=== PATIENT | female | born 1970 | race Caucasian/White ===

== ENCOUNTER 2017-04-09 15:54 | Emergency (ER) | payer OTHER ==
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
== END 2017-04-09 17:58 | disposition left against medical advice (07) ==
LOC: UCEAST 15:54
DX: S80.02XA Contusion of left knee, initial encounter (principal); S80.01XA Contusion of right knee, initial encounter; V49.40XA Driver injured in collision with unspecified motor vehicles in traffic accident, initial encounter; Y93.89 Activity, other specified; Y92.410 Unspecified street and highway as the place of occurrence of the external cause; R07.89 Other chest pain; R06.02 Shortness of breath; J44.9 Chronic obstructive pulmonary disease, unspecified; F41.9 Anxiety disorder, unspecified; G43.909 Migraine, unspecified, not intractable, without status migrainosus; Z88.1 Allergy status to other antibiotic agents; F32.9 Major depressive disorder, single episode, unspecified; E66.9 Obesity, unspecified; Z88.0 Allergy status to penicillin; Z88.2 Allergy status to sulfonamides
CPT/HCPCS: 93005; 99201; G0463

== ENCOUNTER 2018-09-18 11:55 | Emergency (ER) | payer OTHER ==
--- OUTSIDE RECORDS SUMMARY | 2018-09-18 12:04 | XMS REPORT | Continuity of Care Document ---
:1970 External Reference #:[id number] Author Name Talha Dorsey MD Address [address] [place] [address] Care Team Providers Name Role Phone Orlando Gudino MD Care Team Information First Crusher Unavailable Orlando Gudino MD Primary Care Physician Unavailable Payers Type Date Identification Numbers Payment Provider Subscriber Policy Number: [id number] [facility] Yoselyn Grigsby PayID: [id number] [address] [address] [place] [address] Advance Directives Description No Information Available Problems Date Description Provider Status Onset: 09/02/2015 Allergic rhinitis due to pollen Tasneem Lopez, Active RPA-C Onset: 09/02/2015 Allergic rhinitis Tasneem Lopez, Active RPA-C Onset: 06/07/2018 Allergy to other foods CYNTHIA Walton Active Family History Date Family Member(s) Problem(s) Comments General Heart Disease General Hypertension General Stroke General Cancer Social History Type Date Description Comments Sex Unknown Home Environment Has a window air conditioner Home Environment Unfinished Basement Home Environment The floors are wood Home Environment The floors are tile Home Environment The floors are carpeted Home Environment Radiator Heat Home Environment Uses electric heating Smoke-Free Home is smoke-free Pets 1 cat Tobacco Use Start: Unknown Patient has never smoked Smoking Status Reviewed: 09/11/18 Patient has never smoked Allergies, Adverse Reactions, Alerts Date Description Reaction Status Severity Comments 08/12/2015 Penicillins Active 08/12/2015 Erythromycin Active 08/12/2015 Sulfa (Sulfonamide Antibiotics) Active Medications Medication Date Status Form Strength Qnty SIG Indications Ordering Provider Zyrtec-D Allergy 09/11 Active Tablets ER 5-120mg 30tab One tab J30.1 oph & Congestion 12HR s every 12 Suad Dorsey MD hours as needed Flunisolide 07/05 Active Solution 25mcg/Act 25ml 2 sprays (0.025%) each Suad Dorsey MD nostril twice a day Qnasl 06/07 Active Aerosol 80mcg/Act 1unit 2 puffs Z91.018 s each Suad Dorsey MD nostril every day Zyrtec Allergy 02/14 Active Tablets 10mg 30tab one J30.1 s tablet by Suad Dorsey MD mouth every day as needed Cymbalta Active Caps DR 60mg Once a Unknown /0000 Part day Valium Active Tablets 5mg prn Unknown Neurontin Active Capsules 300mg 3 times a Unknown / day Meloxicam Active Tablets 7.5mg take 1 Unknown /0000 tablet by mouth twice a day Zaleplon Active Capsules 10mg take 1 Unknown /0000 capsule by mouth at bedtime Topiramate Active Tablets 50mg take 1 Unknown /0000 tablet by mouth twice a day Cyclobenzaprine Active Tablets 10mg Shahab HCL / Orlando RODARTE Duloxetine HCL Active Caps DR 30mg Unknown / Part Triamcinolone Active Aerosol 55mcg/Act Unknown Acetonide / Fluticasone Active Suspension 50mcg/Act Unknown Propionate /0000 Prednisone Active Tablets 10mg take 3 Unknown /0000 tablets by mouth every morning and 3 every evening for 3 days Oxycodone-Acetam Active Tablets 5-325mg take 1 Unknown inophen /0000 tablet every 6 hours if needed for pain Ibuprofen Active Tablets 800mg take 1 Unknown /0000 tablet three times a day for pain Clindamycin HCL Active Capsules 300mg Unknown /0000 Triamcinolone 05/28 Hx Aerosol 55mcg/Act 1unit 2 puffs Z91.018 s each Suad Dorsey MD - nostril 07/05 every day Qnasl 05/24 Hx Aerosol 80mcg/Act 1unit 2 puffs Z91.018 s each Suad Dorsey MD - nostril 05/28 every Flonase Allergy 02/14 Hx Suspension 50mcg/Act 9.900 2 puffs J30.1 ml each Suad Dorsey MD - nostril 05/24 twice a day Prednisone 02/14 Hx Tablets 10mg 18tab take 3 J30.89 s pills in Suad Dorsey MD - the 03/14 morning /2017 and 3 pills at night for three days. Zyrtec-D Allergy 09/18 Hx Tablets ER 5-120mg 30tab 1 by Louie, & Congestion 12HR s mouth CLARA Gudino-Gerardo - every day 02/14 as needed /2017 Cytomel Hx Unknown /0000 - 02/14 Neurontin Hx Unknown /0000 - 05/24 Flonase Allergy Hx Suspension 50mcg/Act Inhale 2 opher sprays Suad Dorsey MD - into 02/14 nostril /2017 daily in each nostril for nose inflammat ion Zyrtec Allergy Hx Tablets 10mg 30tab one s tablet by Suad Dorsey MD - mouth 02/14 every as needed Oxycodone-Acetam Hx Tablets 5-325mg take 1 Unknown inophen /0000 tablet - every 6 / hours needed for pain Cetirizine Hx Tablets ER 5-120mg Unknown HCL/Pseudoephedr /0000 12HR ine HCL ER - 09/11 Acetaminophen-Co Hx Tablets 300-30mg Unknown deine #3 /0000 - 09/11 Medications Administered in Office Medication Date Status Form Strength Qnty SIG Indications Ordering Provider Allergy 03/09/ Administered Injection Christopher Injection 2 2017 Suad Dorsey MD Or More Allergy 11/18/ Administered Injection Christopher Injection 2 2015 Suad Dorsey MD Or More Allergy 11/04/ Administered Injection Christopher Injection 2 2014 Suad Dorsey MD Or More Allergy 10/23/ Administered Injection Christopher Injection 2 2014 Suad Dorsey MD Or More Allergy 10/14/ Administered Injection Christopher Injection 2 2014 Suad Dorsey MD Or More Allergy 10/07/ Administered Injection Christopher Injection 2 2014 Suad Dorsey MD Or More Allergy 09/25/ Administered Injection Christopher Injection 2 2014 Suad Dorsey MD Or More Immunizations Description No Information Available Vital Signs Date Vital Result Comment 06/07/2018 1:51pm BP Systolic 122 mmHg BP Diastolic 72 mmHg Height 63 inches 5'3" Weight 230.00 lb BMI (Body Mass Index) 40.7 kg/m2 82 Heart Rate 73 /min Respiratory Rate 16 /min Body Temperature 98.5 F O2 % BldC Oximetry 98 % 06/07/2018 3:18pm BP Systolic 108 mmHg BP Diastolic 66 mmHg Height 63 inches 5'3" Weight 239.00 lb BMI (Body Mass Index) 42.3 kg/m2 Heart Rate 68 /min Respiratory Rate 16 /min Body Temperature 96.9 F O2 % BldC Oximetry 99 % 05/24/2018 3:18pm BP Systolic 126 mmHg BP Diastolic 88 mmHg Height 63 inches 5'3" Weight 239.00 lb BMI (Body Mass Index) 42.3 kg/m2 Heart Rate 63 /min Respiratory Rate 18 /min Body Temperature 98.0 F O2 % BldC Oximetry 98 % 03/14/2018 3:03pm BP Systolic 138 mmHg BP Diastolic 98 mmHg Height 63 inches 5'3" Weight 218.00 lb BMI (Body Mass Index) 38.6 kg/m2 Heart Rate 74 /min Body Temperature 98.6 F O2 % BldC Oximetry 98 % 03/07/2018 9:03am Height 63 inches 5'3" Weight 215.00 lb BMI (Body Mass Index) 38.1 kg/m2 Heart Rate 90 /min Respiratory Rate 16 /min Body Temperature 98.1 F O2 % BldC Oximetry 99 % 09/02/2015 11:33am BP Systolic 124 mmHg BP Diastolic 84 mmHg Height 63 inches 5'3" Weight 212.00 lb BMI (Body Mass Index) 37.6 kg/m2 Heart Rate 82 /min Respiratory Rate 12 /min 08/12/2015 3:52pm BP Systolic 130 mmHg BP Diastolic 86 mmHg Height 63 inches Weight 212.00 lb Heart Rate 64 /min Results Test Date Facility Test Result H/L Range Note Order 05/24/2018 [facility] Skin Test Food <pending > Procedures Date Code Description Status 05/24/2018 08155 Nitric Oxide Gas Determination Completed 05/24/2018 20526 Nitric Oxide Gas Determination Completed 05/24/2018 15796 Allergy Tests Percutaneous W/ Allergenic Extracts Completed 05/24/2018 27675 Allergy Tests Percutaneous W/ Allergenic Extracts Completed 05/24/2018 05710 Bronchodilation Responsiveness Spirometry Pre/Post Completed Bronchodil Adm 05/24/2018 81568 Bronchodilation Responsiveness Spirometry Pre/Post Completed Bronchodil Adm 03/09/2018 24183 Allergy Injection 2 Or More Completed 03/07/2018 32924 Allergy Antigens Single Or Multiple Completed 02/14/2018 15083 Allergy Tests Percutaneous W/ Allergenic Extracts Completed 11/18/2015 37913 Allergy Injection 2 Or More Completed 11/04/2015 98008 Allergy Injection 2 Or More Completed 10/23/2015 86821 Allergy Injection 2 Or More Completed 10/14/2015 60406 Allergy Injection 2 Or More Completed 10/07/2015 57212 Allergy Injection 2 Or More Completed 09/25/2015 07957 Allergy Injection 2 Or More Completed Encounters Type Date Location Provider Dx Diagnosis Office Visit 09/11/2018 1:30p CYNTHIA Marshall J30.1 Allergic rhinitis due to pollen Z91.018 Allergy to other foods J30.89 Other allergic rhinitis Office Visit 06/07/2018 3:00p CYNTHIA Marshall J30.1 Allergic rhinitis due to pollen Z91.018 Allergy to other foods J30.89 Other allergic rhinitis Office Visit 05/24/2018 3:00p CYNTHIA Marshall J30.1 Allergic rhinitis due to pollen Z91.018 Allergy to other foods J30.89 Other allergic rhinitis Office Visit 03/14/2018 3:00p CYNTHIA Eubanks J30.1 Allergic rhinitis due to pollen J30.89 Other allergic rhinitis Office Visit 03/07/2018 9:00a CYNTHIA Eubanks J30.1 Allergic rhinitis due to pollen J30.89 Other allergic rhinitis Office Visit 02/14/2018 11:00a Soni Morales30.1 Allergic rhinitis MD due to pollen J30.89 Other allergic rhinitis Office Visit 09/02/2015 11:00a Soni Feldman30.1 Allergic rhinitis RPA-C due to pollen J30.89 Other allergic rhinitis Plan of Treatment Future Appointment(s):12/13/2018 2:00 pm - CYNTHIA Walton at [id number] - CYNTHIA WaltonJ30.1 Allergic rhinitis due to pollenNew Medication:Zyrtec- D Allergy & Congestion 5-120 mg - One tab every 12 hours as neededComments: Patient to continue flunisolide for prophylaxis of her nose and cetirizine for breakthrough nasal symptoms. Saline nasal rinse and HEPA air filter may help. Patient benefited from Qnasl whereas patient sees minimal benefit from other nasal steroids. Patient would like to resume Qnasl AMADA. We will begin the process to get Qnasl approved for treatment.Follow up:3 muwregO22.018 Allergy to other wbvaxR33.89 Other allergic rhinitis
--- OUTSIDE RECORDS SUMMARY | 2018-09-18 12:04 | XMS REPORT ---
:1970 External Reference #:[id number] Author Organization [facility] Address [address], [address] [place] [address] Phone [phone] Care Team Providers Name Role Phone Orlando Gudino MD Care Team Information Licensed Occupational Therapy Assistant Unavailable Orlando Gudino MD Primary Care Physician Unavailable Payers Type Date Identification Numbers Payment Provider Subscriber Commercial Policy Number: [id number] Ricardo Grigsby PayID: [id number] [address] [address] [place] [address] Problems Description No Information Family History Date Family Member(s) Problem(s) Comments Onset: (age 64 Years) Father Lung Cancer Onset: (age 54 Years) Mother Lung Cancer Lost 1 lung durning cancer treatments Social History Type Date Description Comments Marital Status Single Lives With Alone Occupation Disabled Cigarette Use Never Smoked Cigarettes but both parents did smoke in the house ETOH Use Denies alcohol use Smoking Patient has never smoked Recreational Drug Use Denies Drug Use Exercise Type/Frequency Exercises rarely Allergies, Adverse Reactions, Alerts Description No Information Medications Medication Date Status Form Strength Qnty SIG Indications Ordering Provider Cyclobenzaprine / Active Tablets 10mg 1 by Unknown HCL 0000 mouth three times a day as needed muscle spasms Mobic / Active Tablets 7.5mg 1 by Unknown 0000 mouth every day Gabapentin / Active Capsules 300mg 1 by Unknown 0000 mouth three times a day Cymbalta / Active Caps DR 60mg 1 tab by Unknown 0000 Part mouth every day for 2 weeks, then increase to 2 tabs daily Topamax / Active Tablets 100mg 1 by Unknown 0000 mouth twice a day Zyrtec Allergy / Active Tablets 10mg 1 tab by Unknown 0000 mouth every night Flunisolide 00/00/ Active Solution 25mcg/Act 1 spray Unknown 0000 (0.025%) each nostril twice a day Diazepam 00/00/ Active Tablets 5mg as Needed Unknown 0000 Acetaminophen ER 00// Active Tablets ER 650mg take one Unknown 0000 tablet by mouth three times a day as needed for pain Vital Signs Date Vital Result Comment 08/28/2018 BP Systolic Sitting Left Arm 110 mmHg BP Diastolic Sitting Left Arm 80 mmHg Heart Rate 66 /min Respiratory Rate 16 /min Weight 245.00 lb O2 % BldC Oximetry 96 % Results Description No Information Procedures Date CPT Code Description Status 09/23/2015 12120 Echocardiogram Complete Completed Plan of Care Future Appointment(s):10/09/2018 3:45 pm - Will Vazquez MD at [id number]/16 /2018 - Will Vazquez, MDR06.02 Shortness of breathNew Orders:PFT With BronchodilatorComments:This may be multifactorial including obesity +/- asthma. I am requesting records from Dr. Miramontes's office and I am repeating PFTs.Follow up:1 zhgmiW39.0 Simple chronic bronchitisComments:Likely secondary to allergies. She is on Flunisolide and Zyrtec. She has a cat at home which she is allergic to. I recommend she remove the cat from the house.J30.89 Other allergic rhinitisComments:Please see above. Follows with Dr. Talha Dorsey.
[2018-09-18 12:12] VITALS: BP 132/92
--- NOTE | 2018-09-18 12:25 | UC ---
Ear Complaint HPI - HPI Summary HPI Summary: plugged ears x 2 days bilateral ears no ear pain , cannot hear well no cold symptoms - History of Current Complaint Chief Complaint: UCEar Stated Complaint: BOTH EARS PLUGGED Time Seen by Provider: 09/18/18 12:14 Hx Obtained From: Patient Hx Last Menstrual Period: unknown, uterine ablation ?: No Onset/Duration: Gradual Onset, Lasting Days - 2, Still Present Severity Initially: Moderate Severity Currently: Severe Pain Intensity: 0 Aggravating Factors: Cold Alleviating Factors: Nothing Associated Signs/Symptoms: Positive: Hearing Loss. Negative: Discharge, Foreign Body Sensation, Trauma to Ear, Swelling @, URI Symptoms - Allergies/Home Medications Allergies/Adverse Reactions: Allergies Allergy/AdvReac Type Severity Reaction Status Date / Time erythromycin base Allergy Unknown Verified 09/18/18 12:06 Reaction Details Penicillins Allergy Unknown Verified 09/18/18 12:06 Reaction Details Sulfa (Sulfonamide Allergy Unknown Verified 09/18/18 12:06 Antibiotics) Reaction Details DAIRY Allergy Difficulty Uncoded 04/09/17 16:15 Breathing Home Medications: Home Medications Cyclobenzaprine TAB* [Flexeril 10 MG TAB*] 10 mg PO BID PRN 09/18/18 [History Confirmed 09/18/18] DULoxetine DR CAP* [Cymbalta CAP*] 60 mg PO DAILY 09/18/18 [History Confirmed ] Gabapentin CAP(*) [Neurontin 300 CAP(*)] 300 mg PO BID 09/18/18 [History Confirmed 09/18/18] Meloxicam [Mobic] 7.5 mg PO BID 09/18/18 [History Confirmed 09/18/18] Topiramate [Topamax] 50 mg PO DAILY 09/18/18 [History Confirmed 09/18/18] PMH/Surg Hx/FS Hx/Imm Hx Respiratory History: COPD Psychological History: Anxiety - Surgical History Surgical History: Yes Surgery Procedure, Year, and Place: TONSIL 1972. MOLE REMOVED FROM BACK 1989. LARGE OVARIAN CYST REMOVED 2003. GANGLION CYST RT INDEX FINGER 1986. CHRONIC LEFT JAW PAIN-HX OF DENTAL. EXTRACTIONS. uterine ablation with removal ovarian cysts 02/2018 - Family History Known Family History: Positive: Cardiac Disease, Hypertension - Social History Alcohol Use: None Substance Use Type: None Smoking Status (MU): Never Smoked Tobacco Have You Smoked in the Last Year: No - Immunization History Most Recent Influenza Vaccination: 2012 Most Recent Tetanus Shot: unknown Hx Tetanus, Diphtheria Vaccination: No - not sure Vaccination Up to Date: No Review of Systems Constitutional: Negative Skin: Negative Eyes: Negative Respiratory: Negative Cardiovascular: Negative Gastrointestinal: Negative Is Patient Immunocompromised?: No All Other Systems Reviewed And Are Negative: Yes Physical Exam Triage Information Reviewed: Yes Appearance: Well-Appearing, No Pain Distress, Well-Nourished Vital Signs: Initial Vital Signs Temp 97.8 F 09/18/18 12:04 Pulse 74 09/18/18 12:04 Resp 16 09/18/18 12:04 BP 132/92 09/18/18 12:04 Pulse Ox 100 09/18/18 12:04 Vital Signs Reviewed: Yes Eye Exam: Normal Eyes: Positive: Conjunctiva Clear ENT: Positive: Normal ENT inspection, Pharynx normal, Other - cerumen impaction bilateral ears. Negative: Hearing grossly normal Neck: Positive: Supple, Nontender, No Lymphadenopathy Respiratory: Positive: Chest non-tender, Lungs clear, Normal breath sounds Cardiovascular: Positive: RRR, No Murmur, Pulses Normal Skin Exam: Normal Ear Complaint Course/Dx - Differential Dx/Diagnosis Provider Diagnoses: cerumen impaction bilateral ears Discharge - Sign-Out/Discharge Documenting (check all that apply): Patient Departure All imaging exams completed and their final reports reviewed: No Studies - Discharge Plan Condition: Stable Disposition: HOME Patient Education Materials: Cerumen Impaction (ED) Referrals: Orlando Gudino MD [Primary Care Provider] - If Needed - Billing Disposition and Condition Condition: STABLE Disposition: Home
== END 2018-09-18 12:25 | disposition home or self-care (01) ==
LOC: UCCORT 11:55
DX: H61.23 Impacted cerumen, bilateral (principal); J44.9 Chronic obstructive pulmonary disease, unspecified; F41.9 Anxiety disorder, unspecified; Z79.899 Other long term (current) drug therapy; Z88.1 Allergy status to other antibiotic agents; Z88.0 Allergy status to penicillin; Z88.2 Allergy status to sulfonamides
CPT/HCPCS: 99211; G0463